=== PATIENT | female | born 2000 | race Caucasian/White ===

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

== ENCOUNTER 2018-07-04 19:29 | Emergency (ER) | payer OTHER ==
[2018-07-04 19:53] VITALS: BP 129/68
--- NOTE | 2018-07-04 20:28 | UC ---
Ear Complaint HPI - HPI Summary HPI Summary: pt presents with c/o fever,nasal congestion, chest congestion, chills and right ear pain, X 3 days. - History of Current Complaint Chief Complaint: UCGeneralIllness Stated Complaint: ST,SINUS, RT EAR COMPLAINT Time Seen by Provider: 07/04/18 20:23 Hx Obtained From: Patient Hx Last Menstrual Period: 06/24/18 ?: No Onset/Duration: Lasting Days, Still Present Severity Initially: Moderate Severity Currently: Moderate Pain Intensity: 8 Associated Signs/Symptoms: Positive: URI Symptoms - Allergies/Home Medications Allergies/Adverse Reactions: Allergies Allergy/AdvReac Type Severity Reaction Status Date / Time latex Allergy Rash Verified 07/04/18 19:53 PMH/Surg Hx/FS Hx/Imm Hx Previously Healthy: Yes - Surgical History Surgical History: Yes Surgery Procedure, Year, and Place: wisdom teeth - Family History Known Family History: Negative: Diabetes - Social History Occupation: Student Lives: With Family Alcohol Use: Rare Substance Use Type: None Smoking Status (MU): Never Smoked Tobacco Have You Smoked in the Last Year: No - Immunization History Vaccination Up to Date: Yes Review of Systems All Other Systems Reviewed And Are Negative: Yes Constitutional: Positive: Negative Skin: Positive: Negative Eyes: Positive: Negative ENT: Positive: Ear Ache, Sinus Congestion Respiratory: Positive: Negative Cardiovascular: Positive: Negative Gastrointestinal: Positive: Negative Genitourinary: Positive: Negative Motor: Positive: Negative Neurovascular: Positive: Negative Musculoskeletal: Positive: Myalgia Neurological: Positive: Negative Psychological: Positive: Negative Is Patient Immunocompromised?: No Physical Exam Triage Information Reviewed: Yes Appearance: Pain Distress Vital Signs: Initial Vital Signs Temp 100.2 F 07/04/18 19:48 Pulse 122 07/04/18 19:48 Resp 16 07/04/18 19:48 BP 129/68 07/04/18 19:48 Pulse Ox 100 07/04/18 19:48 Vital Signs Reviewed: Yes Eye Exam: Normal ENT: Positive: TM bulging, TM red Dental Exam: Normal Neck exam: Normal Respiratory Exam: Normal Cardiovascular Exam: Normal Musculoskeletal Exam: Normal Neurological Exam: Normal Psychological Exam: Normal Skin Exam: Normal Ear Complaint Course/Dx - Differential Dx/Diagnosis Differential Diagnosis/HQI/PQRI: Otitis Externa, Otitis Media, URI Provider Diagnosis: Otitis media Discharge - Sign-Out/Discharge Documenting (check all that apply): Patient Departure All imaging exams completed and their final reports reviewed: No Studies - Discharge Plan Condition: Stable Disposition: HOME Prescriptions: Amoxicillin PO (*) [Amoxicillin 500 MG CAP*] 500 mg PO Q12H #20 cap Patient Education Materials: Ear Infection (ED) Referrals: Libra Spence NP [Primary Care Provider] - If Needed - Billing Disposition and Condition Condition: STABLE Disposition: Home
== END 2018-07-04 20:34 | disposition home or self-care (01) ==
LOC: UCCORT 19:29
DX: H66.91 Otitis media, unspecified, right ear (principal); R50.9 Fever, unspecified; R09.89 Other specified symptoms and signs involving the circulatory and respiratory systems; Z91.040 Latex allergy status
CPT/HCPCS: 99212; G0463

== ENCOUNTER 2018-07-07 18:01 | Emergency (ER) | payer OTHER ==
[2018-07-07 18:35] VITALS: BP 120/57
--- NOTE | 2018-07-07 18:45 | UC ---
Ear Complaint HPI - HPI Summary HPI Summary: C/O decreased hearing in the right ear. Seen 07/04/18 and diagnosed with ear infection. Currently taking Amoxicillin. - History of Current Complaint Chief Complaint: UCEar Stated Complaint: RECHECK - R EAR INFECTION Time Seen by Provider: 07/07/18 18:37 Hx Obtained From: Patient Hx Last Menstrual Period: 06/23/18 ?: No Onset/Duration: Sudden Onset, Lasting Weeks - 1, Worse Since - last night Severity Initially: Mild Severity Currently: Mild Pain Intensity: 0 Aggravating Factors: Nothing Alleviating Factors: Nothing Associated Signs/Symptoms: Positive: Hearing Loss, URI Symptoms - Allergies/Home Medications Allergies/Adverse Reactions: Allergies Allergy/AdvReac Type Severity Reaction Status Date / Time latex Allergy Rash Verified 07/07/18 18:35 PMH/Surg Hx/FS Hx/Imm Hx Previously Healthy: Yes - Surgical History Surgical History: Yes Surgery Procedure, Year, and Place: wisdom teeth - Family History Known Family History: Positive: Diabetes - Social History Occupation: Student Lives: Dormitory/Roommates Alcohol Use: Rare Substance Use Type: None Smoking Status (MU): Never Smoked Tobacco Have You Smoked in the Last Year: No - Immunization History Vaccination Up to Date: Yes Review of Systems All Other Systems Reviewed And Are Negative: Yes Constitutional: Positive: Fatigue ENT: Positive: Ear Ache, Nasal Discharge Respiratory: Positive: Cough Is Patient Immunocompromised?: No Physical Exam Triage Information Reviewed: Yes Appearance: No Pain Distress, Well-Nourished, Ill-Appearing - mild Vital Signs: Initial Vital Signs Temp 97.9 F 07/07/18 18:32 Pulse 92 07/07/18 18:32 Resp 16 07/07/18 18:32 BP 120/57 07/07/18 18:32 Pulse Ox 100 07/07/18 18:32 Vital Signs Reviewed: Yes Eyes: Positive: Conjunctiva Clear ENT: Positive: Pharynx normal, Nasal congestion, TMs normal - with retracted light reflex bilaterally. Negative: TM bulging - and no effusion. Neck exam: Normal Respiratory Exam: Normal Cardiovascular Exam: Normal Abdomen Description: Positive: Nontender, No Organomegaly, Soft Bowel Sounds: Positive: Present Musculoskeletal Exam: Normal Neurological Exam: Normal Psychological Exam: Normal Skin Exam: Normal Ear Complaint Course/Dx - Differential Dx/Diagnosis Differential Diagnosis/HQI/PQRI: Otitis Externa, Otitis Media, Perforated TM, URI Provider Diagnosis: Upper respiratory infection, Dysfunction of right eustachian tube Discharge - Sign-Out/Discharge Documenting (check all that apply): Patient Departure All imaging exams completed and their final reports reviewed: No Studies - Discharge Plan Condition: Stable Disposition: HOME Patient Education Materials: Upper Respiratory Infection (ED) Referrals: Libra Spence ARTIFICIAL BREEDING TECHNICIAN [Primary Care Provider] - Additional Instructions: NASAL SPRAYS AND DROPS: Afrin in the PUMP/ MIST bottle (Get generic 12 hours nasal decongestant spray). Tilt your head down and look at the floor while doing a strong sniff with the spray. Decongestant nasal sprays and drops often give dramatic relief from congestion. They are often recommended for patients with sinus infection to assist with sinus drainage. Persons with high blood pressure should consult the doctor before using these nasal sprays. Afrin and [place]-Synephrine are common [id number] preparations. They should not be used for more than five days, as "rebound" congestion can occur - - the congestion flares as the drug wears off. A way of dealing with this rebound congestion problem is to medicate only one nostril each time, allowing the other nostril to recover from the medicine' s effects. When you no longer need the drug during the day, spray only one nostril each night. This helps you sleep well without severe rebound congestion. Call the doctor if you develop severe headache, palpitations, or chest pain. EUSTATION TUBE DYSFUNCTION: The tube that allows the middle ear to equalize the pressure with the outside air is blocked. This can be due to colds, allergies, smoke, or other irritants. Short term treatment can include Afrin, sudafed and nasal cortisone sprays for allergies. - Billing Disposition and Condition Condition: STABLE Disposition: Home
== END 2018-07-07 19:00 | disposition home or self-care (01) ==
LOC: UCCORT 18:01
DX: J06.9 Acute upper respiratory infection, unspecified (principal); H69.81 Other specified disorders of Eustachian tube, right ear; Z91.040 Latex allergy status
CPT/HCPCS: 99211; G0463

== ENCOUNTER 2018-08-30 14:57 | Emergency (ER) | payer OTHER ==
[2018-08-30 15:19] VITALS: BP 130/66
--- NOTE | 2018-08-30 15:36 | UC ---
Skin Complaint HPI - HPI Summary HPI Summary: 18 yo had daith peircing right ear one week ago has had 24 hours of pain/redness and swelling no pus no fever - History of Current Complaint Chief Complaint: UCSkin Time Seen by Provider: 08/30/18 15:21 Stated Complaint: RIGHT EAR SKIN ISSUE Hx Obtained From: Patient Hx Last Menstrual Period: 07/28/18 Onset/Duration: Gradual Onset, Lasting Hours Timing: Constant Onset Severity: Mild Current Severity: Moderate Pain Intensity: 6 Pain Scale Used: 0-10 Numeric Location: Ear (Right) Character: Pain, Redness, Painful Aggravating Factor(s): Touch Associated Signs & Symptoms: Positive: Tenderness Related History: Other: - piercing - Allergy/Home Medications Allergies/Adverse Reactions: Allergies Allergy/AdvReac Type Severity Reaction Status Date / Time latex Allergy Rash Verified 08/30/18 15:19 PMH/Surg Hx/FS Hx/Imm Hx Previously Healthy: Yes - Surgical History Surgical History: Yes Surgery Procedure, Year, and Place: wisdom teeth - Family History Known Family History: Positive: Diabetes Negative: Cardiac Disease, Hypertension - Social History Alcohol Use: Occasionally Substance Use Type: None Smoking Status (MU): Never Smoked Tobacco Have You Smoked in the Last Year: No - Immunization History Vaccination Up to Date: Yes Review of Systems All Other Systems Reviewed And Are Negative: Yes Constitutional: Positive: Negative Skin: Positive: Negative Eyes: Positive: Negative ENT: Positive: Negative Respiratory: Positive: Negative Cardiovascular: Positive: Negative Gastrointestinal: Positive: Negative Genitourinary: Positive: Negative Motor: Positive: Negative Neurovascular: Positive: Negative Musculoskeletal: Positive: Negative Neurological: Positive: Negative Psychological: Positive: Negative Physical Exam Triage Information Reviewed: Yes Appearance: Well-Appearing, No Pain Distress, Well-Nourished Vital Signs: Initial Vital Signs Temp 97.8 F 08/30/18 15:16 Pulse 87 08/30/18 15:16 Resp 15 08/30/18 15:16 BP 130/66 08/30/18 15:16 Pulse Ox 100 08/30/18 15:16 Vital Signs Reviewed: Yes Eyes: Positive: Conjunctiva Clear ENT: Positive: Hearing grossly normal. Negative: Nasal congestion, Nasal drainage, Trismus, Muffled voice, Hoarse voice Neck: Positive: Supple, Nontender, No Lymphadenopathy Respiratory: Positive: Lungs clear, Normal breath sounds, No respiratory distress, No accessory muscle use Cardiovascular: Positive: RRR, No Murmur Neurological: Positive: Alert Psychological Exam: Normal Skin Exam: Other - red and swollen around piercing no pus or obvious abscess Images Head: 1 - red/swollen Course/Dx - Course Course Of Treatment: declines piercing removal wants to try antibiotics aware of potential for serious cartilage infection - Diagnoses Provider Diagnosis: Complication of right ear piercing, Perichondritis Discharge - Sign-Out/Discharge Documenting (check all that apply): Patient Departure All imaging exams completed and their final reports reviewed: No Studies - Discharge Plan Condition: Stable Disposition: HOME Prescriptions: Levofloxacin TAB* [Levaquin TAB*] 750 mg PO DAILY #7 tab Patient Education Materials: Cellulitis (ED) Referrals: Libra Spence NP [Primary Care Provider] - 3 Days Additional Instructions: warm compresses RECHECK IN 48 hours if not improved recheck for worsening symptoms if thing fail to improve or worsen you may need to have piercing removed As discussed you can sometime end up with serious cartilage infections from this - Billing Disposition and Condition Condition: STABLE Disposition: Home
== END 2018-08-30 15:40 | disposition home or self-care (01) ==
LOC: UCCORT 14:57
DX: H95.89 Other postprocedural complications and disorders of the ear and mastoid process, not elsewhere classified (principal); W26.8XXA Contact with other sharp object(s), not elsewhere classified, initial encounter; Y93.89 Activity, other specified; Y92.9 Unspecified place or not applicable; H61.011 Acute perichondritis of right external ear
CPT/HCPCS: 99212; G0463

== ENCOUNTER 2018-09-27 16:03 | Emergency (ER) | payer OTHER ==
[2018-09-27 16:30] VITALS: BP 115/70
--- NOTE | 2018-09-27 16:42 | UC ---
UC General HPI - HPI Summary HPI Summary: 3-4 days of urinary frequency and burning plus back ache. hx uti's that were similar. denies fever, abdominal pain and flank pain. denies vaginal discharge odor , lesions and risk/concern for pelvic infection. - History of Current Complaint Chief Complaint: UCGU Stated Complaint: URINARY COMPLAINT Time Seen by Provider: 09/27/18 16:33 Hx Obtained From: Patient Hx Last Menstrual Period: September 03 Onset/Duration: Gradual Onset Timing: Constant Pain Intensity: 4 Associated Signs & Symptoms: Positive: Dysuria. Negative: Abdominal Pain, Fever - Allergy/Home Medications Allergies/Adverse Reactions: Allergies Allergy/AdvReac Type Severity Reaction Status Date / Time latex Allergy Rash Verified 09/27/18 16:30 Home Medications: Home Medications Phenazopyridine TAB* [Pyridium 100 mg TAB*] 100 mg PO TID 09/27/18 [History Confirmed 09/27/18] PMH/Surg Hx/FS Hx/Imm Hx - Additional Past Medical History Additional PMH: UTI's - Surgical History Surgical History: Yes Surgery Procedure, Year, and Place: wisdom teeth - Family History Known Family History: Positive: Diabetes Negative: Cardiac Disease, Hypertension - Social History Alcohol Use: Rare Substance Use Type: None Smoking Status (MU): Never Smoked Tobacco Have You Smoked in the Last Year: No - Immunization History Vaccination Up to Date: Yes Review of Systems All Other Systems Reviewed And Are Negative: Yes Constitutional: Negative: Fever, Chills Gastrointestinal: Negative: Abdominal Pain Genitourinary: Positive: Dysuria, Frequency, Urgency. Negative: Vaginal/Penile Itching, Vaginal/Penile Discharge, Abnormal Bleeding Physical Exam Triage Information Reviewed: Yes Appearance: Well-Appearing Vital Signs: Initial Vital Signs Temp 98.3 F 09/27/18 16:25 Pulse 70 09/27/18 16:25 Resp 18 09/27/18 16:25 BP 115/70 09/27/18 16:25 Pulse Ox 98 09/27/18 16:25 Vital Signs Reviewed: Yes Eyes: Positive: Conjunctiva Clear Abdomen Description: Positive: Nontender, No Organomegaly, Soft. Negative: CVA Tenderness (R), CVA Tenderness (L), Distended, Guarding Bowel Sounds: Positive: Present Musculoskeletal: Positive: ROM Intact Neurological: Positive: Alert Psychological: Positive: Age Appropriate Behavior Skin Exam: Normal Diagnostics - Laboratory Lab Results: u/a=unremarkable, culture is pending. Course/Dx - Course Course Of Treatment: pelvic exam offered but pt declined citing lack of s/s and risk/concern for pelvic infection. she had been self txing with drinking lots of water. will send culture and start presumptive tx for UTI. - Diagnoses Provider Diagnosis: Dysuria Discharge - Sign-Out/Discharge Documenting (check all that apply): Patient Departure All imaging exams completed and their final reports reviewed: No Studies - Discharge Plan Condition: Stable Disposition: HOME Prescriptions: Nitrofurantoin Monohyd/M-Cryst [Macrobid 100 mg Capsule] 100 mg PO BID 5 Days # 10 cap Patient Education Materials: Dysuria (ED) Referrals: Libra Spence NP [Primary Care Provider] - 7 Days - Billing Disposition and Condition Condition: STABLE Disposition: Home
== END 2018-09-27 16:50 | disposition home or self-care (01) ==
LOC: UCCORT 16:03
DX: R30.0 Dysuria (principal)
CPT/HCPCS: 81003; 87086; 99212; G0463